=== PATIENT | male | born 1940 | race Caucasian/White ===

== ENCOUNTER 2022-01-28 01:03 | Inpatient (IN) | payer MEDICARE ==
[2022-01-28 01:38] LABS: #Neutrophils 11.7 10x3/uL (1.5-8.4); %Basophils 0.3 % (0.0-2.0); %Eosinophils 0.3 % (0.0-6.0); %Lymphocytes 9.1 % (18.0-47.0); %Monocytes 7.2 % (0.0-10.0); %Neutrophils 82.5 % (40.0-75.0); Hemoglobin 9.7 g/dL (13.5-17.5); Mean Corpuscular Hemoglobin 30.4 pg (27.0-33.0); Mean Corpuscular Volume 92.2 fl (81.2-95.1); Mean Platelet Volume 12.6 fl (7.4-10.4); Platelet Count 156 10x3/uL (150-450); RBC Distribution Width 17.6 % (11.5-14.5); Red Blood Cell (RBC) Count 3.19 10x6/uL (4.32-5.72); White Blood Cell (WBC) Count 14.1 10x3/uL (3.5-10.5)
[2022-01-28 01:56] LABS: ALT (SGPT) 19 U/L (8-55); AST (SGOT) 15 U/L (5-34); Albumin 3.2 g/dL (3.4-4.8); Alkaline Phosphatase 54 U/L (40-110); Anion Gap 17 mmol/L (10-20); BUN (Urea Nitrogen) 90 mg/dL (8.4-25.7); Bilirubin, Total 0.8 mg/dL (0.2-1.2); Calc. Creatinine Clearance 0 mL/min (70-130); Carbon Dioxide 24 mmol/L (23-31); Chloride 104 mmol/L (98-107); Estimated GFR 66; Globulin 1.9 g/dL (2.4-3.5); Glucose 143 mg/dL (83-110); Lipase 20 U/L (8-78); Potassium 5.1 mmol/L (3.5-5.1); Protein, Total 5.1 g/dL (5.8-8.1); Sodium 140 mmol/L (136-145)
[2022-01-28 02:14] LABS: CKMB 2.8 ng/mL (0-6.6)
[2022-01-28 02:40] LABS: SARS-CoV-2 NAA Rapid Test Not Detected (NotDetected)
[2022-01-28] MEDS ORDERED: Cefepime 2 GM VIAL ONE (03:14)
[2022-01-28] MEDS ORDERED: Ondansetron PF 4 MG/2 ML Vial ONE (04:41)
[2022-01-28] MEDS ORDERED: NOREPINEPHRINE 8 MG/250 ML-D5W 250 ML ONE (04:46)
[2022-01-28] MEDS ORDERED: Pantoprazole 40 MG VIAL ONE ×2 (06:11→08:02)
[2022-01-28] MEDS ORDERED: Pantoprazole 40 MG VIAL IVP SCH (06:15)
[2022-01-28] MEDS ORDERED: HUMAN PROTHROMBIN COMPLX IV SCH ×2 (06:30→08:00)
[2022-01-28] MEDS ORDERED: ADMIXTURE FEE IV SCH ×2 (06:30→08:00)
[2022-01-28] MEDS ORDERED: Dexmedetomidine In 0.9 % NaCl 100 ML IVPB SCH (06:45)
[2022-01-28] MEDS ORDERED: Pantoprazole 80 MG in Sodium Chloride 0.9% 100 ML IVP SCH (07:00)
[2022-01-28 07:41] VITALS: BMI 34.0
[2022-01-28] MEDS: Sodium Chloride 0.9% 1,000 ML IV SCH ×2 (07:42→17:33)
[2022-01-28 07:45] LABS: Troponin I 0.045 ng/mL (< 0.028)
[2022-01-28 07:55] LABS: #Eosinphils 0.2 10x3/uL (0.0-0.5); #Monocytes 1.4 10x3/uL (0.0-1.1); #Neutrophils 11.7 10x3/uL (1.5-8.4); %Basophils 0.1 % (0.0-2.0); %Eosinophils 1.6 % (0.0-6.0); %Lymphocytes 12.9 % (18.0-47.0); %Monocytes 8.9 % (0.0-10.0); Mean Corpuscular HGB CONC 33.3 g/dL (32.0-36.0); Mean Corpuscular Hemoglobin 30.4 pg (27.0-33.0); Mean Corpuscular Volume 91.2 fl (81.2-95.1); Mean Platelet Volume 12.1 fl (7.4-10.4); Platelet Count 146 10x3/uL (150-450); Red Blood Cell (RBC) Count 2.96 10x6/uL (4.32-5.72); White Blood Cell (WBC) Count 15.3 10x3/uL (3.5-10.5)
[2022-01-28 09:05] LABS: Lactic Acid 3.1 mmol/L (0.5-2.2)
[2022-01-28] MEDS ORDERED: Succinylcholine 200 MG/10 ml SYRINGE FS ONE (10:00)
[2022-01-28] MEDS ORDERED: Lorazepam 2 MG/ML VIAL ONE (10:42)
[2022-01-28] MEDS ORDERED: Lorazepam 2 MG/ML VIAL SLOW IVP SCH (10:45)
[2022-01-28] MEDS ORDERED: Fentanyl 100 MCG/2 ML VIAL SLOW IVP SCH (10:55)
[2022-01-28] MEDS ORDERED: Fentanyl 100 MCG/2 ML VIAL ONE (10:58)
[2022-01-28] MEDS ORDERED: Sodium Bicarbonate 100 MEQ in Dextrose 5% in Water 1,000 ML IV SCH (11:00)
[2022-01-28 11:04] LABS: Hemoglobin 9.2 g/dL (13.5-17.5); Mean Corpuscular HGB CONC 32.5 g/dL (32.0-36.0); Mean Corpuscular Hemoglobin 29.1 pg (27.0-33.0); Mean Corpuscular Volume 89.6 fl (81.2-95.1); Mean Platelet Volume 12.7 fl (7.4-10.4); Platelet Count 115 10x3/uL (150-450); RBC Distribution Width 20.3 % (11.5-14.5); Red Blood Cell (RBC) Count 3.16 10x6/uL (4.32-5.72); White Blood Cell (WBC) Count 16.5 10x3/uL (3.5-10.5)
[2022-01-28 11:08] LABS: Lactic Acid 7.3 mmol/L (0.5-2.2)
[2022-01-28] MEDS ORDERED: Sodium Bicarbonate 100 MEQ, Admixture Fee 1 EACH in Dextrose 5% in Water 1,000 ML IV SCH ×2 (11:15→16:30)
[2022-01-28 11:35] LABS: Troponin I 0.078 ng/mL (< 0.028)
[2022-01-28 11:38] LABS: MDiff Complete? YES; Manual Diff?? YES
[2022-01-28 11:49] LABS: Anion Gap 20 mmol/L (10-20); BUN (Urea Nitrogen) 101 mg/dL (8.4-25.7); Calc. Creatinine Clearance 69 mL/min (70-130); Calcium 7.8 mg/dL (7.8-10.44); Carbon Dioxide 13 mmol/L (23-31); Chloride 113 mmol/L (98-107); Estimated GFR 66; Glucose 158 mg/dL (83-110); Sodium 141 mmol/L (136-145)
[2022-01-28 11:50] LABS: Band 8 % (5-11); Lymphocytes 5 % (21-51); Metamyelocyte 1 % (0-0); Monocytes 9 % (0-10); Neutrophil 74 % (42-75); Reactive Lymphocytes 3 % (0-10)
[2022-01-28 11:51] LABS: Platelet Morphology Comment Appears Adequate
[2022-01-28 11:52] LABS: Anisocytosis SLIGHT = 6-15 cells (100X) (0-5/hpf); Dohle Bodies SLIGHT; Hypochromia SLIGHT = 6-15 cells (100X) (0-5/hpf); Macrocytosis SLIGHT = 6-15 cells (100X) (0-5/hpf); Microcytosis SLIGHT = 6-15 cells (100X) (0-5/hpf); Polychromasia SLIGHT = 2-3 cells (100X) (0-2/hpf); Toxic Granulation SLIGHT; Vacuoles SLIGHT
[2022-01-28 11:54] LABS: Elliptocytes SLIGHT = 2-5 cells (100X) (0-1/hpf)
[2022-01-28] MEDS ORDERED: Propofol 1,000 MG/100 ML VIAL IV ONE (12:04)
[2022-01-28] MEDS: Propofol 1,000 MG/100 ML VIAL IV PRN ×2 (12:05→21:43)
[2022-01-28] MEDS ORDERED: Iopamidol 300 61% 100 ML VIAL FS ONE (12:26)
[2022-01-28] MEDS ORDERED: Propofol BOLUS 1,000 MG/100 ML VIAL IV PRN (12:30)
[2022-01-28] MEDS ORDERED: Morphine 2 MG/ML VIAL SLOW IVP PRN (12:30)
[2022-01-28] MEDS ORDERED: VANCOMYCIN 1.75 GM/350 ML BAG 1.75 GM in Premix Bag 1 BAG IVPB SCH (12:30)
[2022-01-28] MEDS ORDERED: Lorazepam 2 MG/ML VIAL SLOW IVP PRN (12:30)
[2022-01-28] MEDS ORDERED: Fentanyl BOLUS 250 ML IVPB PRN (12:30)
[2022-01-28] MEDS ORDERED: Rocuronium Bromide 10 MG/ML (10ML VIAL) ONE (13:02)
[2022-01-28] MEDS ORDERED: EPINEPHrine 1 MG/10 ML Abboject SYRINGE ONE (13:14)
[2022-01-28 15:28] LABS: Prothrombin Time 11.3 sec (9.5-12.1)
[2022-01-28 15:32] LABS: ALT (SGPT) 45 U/L (8-55); AST (SGOT) 44 U/L (5-34); Albumin 2.8 g/dL (3.4-4.8); Alkaline Phosphatase 42 U/L (40-110); Anion Gap 15 mmol/L (10-20); BUN (Urea Nitrogen) 96 mg/dL (8.4-25.7); Bilirubin, Total 1.4 mg/dL (0.2-1.2); Calc. Creatinine Clearance 65 mL/min (70-130); Calcium 7.7 mg/dL (7.8-10.44); Carbon Dioxide 19 mmol/L (23-31); Chloride 111 mmol/L (98-107); Estimated GFR 61; Globulin 1.6 g/dL (2.4-3.5); Glucose 168 mg/dL (83-110); Potassium 3.7 mmol/L (3.5-5.1); Protein, Total 4.4 g/dL (5.8-8.1); Sodium 141 mmol/L (136-145)
[2022-01-28 15:44] LABS: Troponin I 0.419 ng/mL (< 0.028)
[2022-01-28] MEDS: fentaNYL Citrate-0.9 % NaCl/PF 100 ML IVPB SCH (16:02)
[2022-01-28 16:07] LABS: ALV-art Gradient 556.925 mmHg (0-20); Actual Bicarbonate (HCO3a) 13.7 mEq/L (22-28); Base Excess (BEa) -14.1 mEq/L (-2.0 to +3.0); CO2 Tension 39.9 mmHg (35.0-45.0); Calcium, Ionized (arterial) 1.09 mmol/L (1.12-1.30); Carboxyhemoglobin (COHb) 0.4 gm% (0.0-3.0); O2 Tension (PaO2), arterial 106.2 mmHg (> 60.0); Potassium - ABG Lab 4.4 mmol/L (3.70-5.30); Puncture Site LBA; pH, Arterial 7.15 (7.35-7.45)
[2022-01-28 16:26] LABS: Magnesium 1.9 mg/dL (1.6-2.6)
[2022-01-28] MEDS ORDERED: Piperacillin/Tazobactam 3.375 GM in Sodium Chloride 0.9% 100 ML IVPB SCH (17:00)
[2022-01-28 17:17] LABS: Lactic Acid 3.7 mmol/L (0.5-2.2)
[2022-01-28 17:25] LABS: Actual Bicarbonate (HCO3a) 21.6 mEq/L (22-28); CO2 Tension 28.5 mmHg (35.0-45.0); Calcium, Ionized (arterial) 1.04 mmol/L (1.12-1.30); Carboxyhemoglobin (COHb) 0.1 gm% (0.0-3.0); Hemoglobin (Hb) 9.5 g/dL (14.0-18.0); O2 Tension (PaO2), arterial 155.6 mmHg (> 60.0); Potassium - ABG Lab 3.7 mmol/L (3.70-5.30); Puncture Site Arterial Line
[2022-01-28 17:30] LABS: ALV-art Gradient 165.275 mmHg (0-20)
[2022-01-28] MEDS ORDERED: methylPREDNISolone Sod Succ/PF 125 MG/2 ML VIAL IVP SCH (18:00)
[2022-01-28 18:43] LABS: Hemoglobin 9.5 g/dL (13.5-17.5)
[2022-01-28 18:59] LABS: Troponin I 0.896 ng/mL (< 0.028)
[2022-01-28] MEDS ORDERED: Magnesium 2 GM/50 ML(in water) 2 GM in Premix Bag 1 BAG IVPB SCH (21:00)
[2022-01-28] MEDS ORDERED: Vancomycin 1 GM in Premix Bag 1 BAG IVPB SCH (21:00)
[2022-01-28] MEDS ORDERED: Cefepime 1 GM in Sodium Chloride 0.9% 100 ML IVPB SCH (21:00)
[2022-01-28] MEDS: Piperacillin/Tazobactam 3.375 GM in Sodium Chloride 0.9% 100 ML IVPB SCH (21:23)
[2022-01-28] MEDS: Pantoprazole 40 MG VIAL IVP SCH (21:24)
[2022-01-28] MEDS: NOREPINEPHRINE 8 MG/250 ML-D5W 250 ML IVPB SCH (21:43)
[2022-01-28 23:48] LABS: Hemoglobin 9.4 g/dL (13.5-17.5)
[2022-01-29 04:12] LABS: Anion Gap 14 mmol/L (10-20); BUN (Urea Nitrogen) 64 mg/dL (8.4-25.7); Calc. Creatinine Clearance 75 mL/min (70-130); Calcium 7.5 mg/dL (7.8-10.44); Carbon Dioxide 20 mmol/L (23-31); Chloride 110 mmol/L (98-107); Estimated GFR 73; Glucose 187 mg/dL (83-110); Potassium 3.1 mmol/L (3.5-5.1); Sodium 141 mmol/L (136-145)
[2022-01-29 04:27] LABS: #Eosinphils 0.1 10x3/uL (0.0-0.5); #Monocytes 1.2 10x3/uL (0.0-1.1); #Neutrophils 12.9 10x3/uL (1.5-8.4); %Basophils 0.3 % (0.0-2.0); %Eosinophils 0.8 % (0.0-6.0); %Lymphocytes 9.3 % (18.0-47.0); %Monocytes 7.6 % (0.0-10.0); %Neutrophils 81.4 % (40.0-75.0); Hemoglobin 9.3 g/dL (13.5-17.5); Mean Corpuscular HGB CONC 34.7 g/dL (32.0-36.0); Mean Corpuscular Hemoglobin 28.9 pg (27.0-33.0); Mean Corpuscular Volume 83.2 fl (81.2-95.1); Mean Platelet Volume 12.5 fl (7.4-10.4); Platelet Count 140 10x3/uL (150-450); RBC Distribution Width 19.7 % (11.5-14.5); Red Blood Cell (RBC) Count 3.22 10x6/uL (4.32-5.72); White Blood Cell (WBC) Count 15.8 10x3/uL (3.5-10.5)
[2022-01-29 04:41] LABS: CKMB 7.9 ng/mL (0-6.6)
[2022-01-29 05:06] LABS: Magnesium 2.4 mg/dL (1.6-2.6)
[2022-01-29 05:14] LABS: Band 2 % (5-11); Lymphocytes 11 % (21-51); Monocytes 6 % (0-10)
[2022-01-29 05:15] LABS: Neutrophil 81 % (42-75)
[2022-01-29 05:16] LABS: Anisocytosis SLIGHT = 6-15 cells (100X) (0-5/hpf); Hypochromia SLIGHT = 6-15 cells (100X) (0-5/hpf); Macrocytosis SLIGHT = 6-15 cells (100X) (0-5/hpf); Microcytosis SLIGHT = 6-15 cells (100X) (0-5/hpf); Platelet Morphology Comment Appears Adequate
[2022-01-29] MEDS: Piperacillin/Tazobactam 3.375 GM in Sodium Chloride 0.9% 100 ML IVPB SCH ×3 (05:55→21:11)
[2022-01-29] MEDS: Potassium Chloride 20 MEQ in Premix Bag 1 BAG IVPB SCH ×2 (05:56→08:04)
[2022-01-29 06:55] LABS: Actual Bicarbonate (HCO3a) 22.2 mEq/L (22-28); Base Excess (BEa) -0.5 mEq/L (-2.0 to +3.0); Calcium, Ionized (arterial) 1.03 mmol/L (1.12-1.30); Carboxyhemoglobin (COHb) 0.3 gm% (0.0-3.0); Hemoglobin (Hb) 10.1 g/dL (14.0-18.0); O2 Tension (PaO2), arterial 124.1 mmHg (> 60.0); Potassium - ABG Lab 3.2 mmol/L (3.70-5.30); Puncture Site Arterial Line; pH, Arterial 7.49 (7.35-7.45)
[2022-01-29] MEDS: NOREPINEPHRINE 8 MG/250 ML-D5W 250 ML IVPB SCH (07:35)
[2022-01-29] MEDS: Propofol 1,000 MG/100 ML VIAL IV PRN ×2 (07:35→19:17)
[2022-01-29] MEDS: Amiodarone In Dextrose 200 ML IVPB SCH ×2 (07:35→19:16)
[2022-01-29] MEDS: Pantoprazole 40 MG VIAL IVP SCH ×2 (08:05→21:12)
[2022-01-29] MEDS: fentaNYL Citrate-0.9 % NaCl/PF 100 ML IVPB SCH (09:53)
[2022-01-29] MEDS: Phenylephrine 40 MG/NS 250 ML 40 MG in Premix Bag 1 BAG IVPB SCH ×3 (10:07→21:33)
[2022-01-29 11:11] LABS: Potassium 3.6 mmol/L (3.5-5.1)
[2022-01-29] MEDS: VANCOMYCIN 1.25 GM/250 ML BAG 1.25 GM in Premix Bag 1 BAG IVPB SCH (11:39)
[2022-01-29 14:03] LABS: Lactic Acid 2.2 mmol/L (0.5-2.2)
[2022-01-30 03:32] LABS: #Eosinphils 0.1 10x3/uL (0.0-0.5); #Monocytes 0.8 10x3/uL (0.0-1.1); #Neutrophils 7.9 10x3/uL (1.5-8.4); %Basophils 0.2 % (0.0-2.0); %Eosinophils 0.5 % (0.0-6.0); %Lymphocytes 11.2 % (18.0-47.0); %Monocytes 8.2 % (0.0-10.0); %Neutrophils 79.4 % (40.0-75.0); Hemoglobin 8.6 g/dL (13.5-17.5); Mean Corpuscular Hemoglobin 28.6 pg (27.0-33.0); Mean Corpuscular Volume 84.1 fl (81.2-95.1); Mean Platelet Volume 11.5 fl (7.4-10.4); Platelet Count 119 10x3/uL (150-450); RBC Distribution Width 20.1 % (11.5-14.5); Red Blood Cell (RBC) Count 3.01 10x6/uL (4.32-5.72)
[2022-01-30 03:45] LABS: ALT (SGPT) 27 U/L (8-55); AST (SGOT) 24 U/L (5-34); Albumin 2.5 g/dL (3.4-4.8); Alkaline Phosphatase 58 U/L (40-110); Anion Gap 12 mmol/L (10-20); BUN (Urea Nitrogen) 36 mg/dL (8.4-25.7); Bilirubin, Direct 0.5 mg/dL (0.1-0.3); Bilirubin, Total 0.8 mg/dL (0.2-1.2); Calc. Creatinine Clearance 99 mL/min (70-130); Calcium 7.8 mg/dL (7.8-10.44); Carbon Dioxide 21 mmol/L (23-31); Chloride 113 mmol/L (98-107); Estimated GFR 89; Glucose 111 mg/dL (83-110); Magnesium 2.2 mg/dL (1.6-2.6); Potassium 3.6 mmol/L (3.5-5.1); Protein, Total 4.4 g/dL (5.8-8.1); Sodium 142 mmol/L (136-145)
[2022-01-30] MEDS: Piperacillin/Tazobactam 3.375 GM in Sodium Chloride 0.9% 100 ML IVPB SCH ×3 (05:07→19:51)
[2022-01-30] MEDS: Propofol 1,000 MG/100 ML VIAL IV PRN ×2 (06:42→19:53)
[2022-01-30 07:26] LABS: Actual Bicarbonate (HCO3a) 23.9 mEq/L (22-28); Base Excess (BEa) 0.8 mEq/L (-2.0 to +3.0); CO2 Tension 32.5 mmHg (35.0-45.0); Calcium, Ionized (arterial) 1.07 mmol/L (1.12-1.30); Carboxyhemoglobin (COHb) 0.3 gm% (0.0-3.0); Hemoglobin (Hb) 8.8 g/dL (14.0-18.0); O2 Tension (PaO2), arterial 123.8 mmHg (> 60.0); Potassium - ABG Lab 3.3 mmol/L (3.70-5.30); Puncture Site Arterial Line; pH, Arterial 7.49 (7.35-7.45)
[2022-01-30 07:31] LABS: ALV-art Gradient 85.125 mmHg (0-20)
[2022-01-30] MEDS: Pantoprazole 40 MG VIAL IVP SCH ×2 (07:57→19:51)
[2022-01-30] MEDS: Potassium Chloride 40 MEQ in Premix Bag 1 BAG IVPB SCH ×2 (09:06→19:53)
[2022-01-30] MEDS: fentaNYL Citrate-0.9 % NaCl/PF 100 ML IVPB SCH (10:34)
[2022-01-30] MEDS: Amiodarone In Dextrose 200 ML IVPB SCH ×2 (10:53→21:27)
[2022-01-30 11:55] LABS: Vancomycin, Trough 8.6 ug/mL
[2022-01-30] MEDS: VANCOMYCIN 1.25 GM/250 ML BAG 1.25 GM in Premix Bag 1 BAG IVPB SCH (12:09)
[2022-01-30] MEDS: Phenylephrine 40 MG/NS 250 ML 40 MG in Premix Bag 1 BAG IVPB SCH (19:53)
[2022-01-30 23:37] LABS: Anion Gap 10 mmol/L (10-20); BUN (Urea Nitrogen) 26 mg/dL (8.4-25.7); Calc. Creatinine Clearance 105 mL/min (70-130); Calcium 7.8 mg/dL (7.8-10.44); Carbon Dioxide 22 mmol/L (23-31); Chloride 115 mmol/L (98-107); Estimated GFR 91; Glucose 104 mg/dL (83-110); Potassium 4.1 mmol/L (3.5-5.1); Sodium 143 mmol/L (136-145)
[2022-01-31] MEDS: Propofol 1,000 MG/100 ML VIAL IV PRN (04:03)
[2022-01-31] MEDS: fentaNYL Citrate-0.9 % NaCl/PF 100 ML IVPB SCH (04:03)
[2022-01-31 04:12] LABS: #Eosinphils 0.1 10x3/uL (0.0-0.5); #Monocytes 0.4 10x3/uL (0.0-1.1); #Neutrophils 3.3 10x3/uL (1.5-8.4); %Basophils 0.2 % (0.0-2.0); %Eosinophils 2.2 % (0.0-6.0); %Lymphocytes 14.4 % (18.0-47.0); %Monocytes 9.2 % (0.0-10.0); %Neutrophils 73.8 % (40.0-75.0); Hemoglobin 7.6 g/dL (13.5-17.5); Mean Corpuscular HGB CONC 32.5 g/dL (32.0-36.0); Mean Corpuscular Hemoglobin 28.3 pg (27.0-33.0); Platelet Count 98 10x3/uL (150-450); RBC Distribution Width 20.4 % (11.5-14.5); Red Blood Cell (RBC) Count 2.69 10x6/uL (4.32-5.72); White Blood Cell (WBC) Count 4.5 10x3/uL (3.5-10.5)
[2022-01-31 04:13] LABS: Mean Platelet Volume 11.6 fl (7.4-10.4)
[2022-01-31 04:23] LABS: Anion Gap 10 mmol/L (10-20); BUN (Urea Nitrogen) 25 mg/dL (8.4-25.7); Calc. Creatinine Clearance 110 mL/min (70-130); Calcium 7.8 mg/dL (7.8-10.44); Carbon Dioxide 22 mmol/L (23-31); Chloride 115 mmol/L (98-107); Estimated GFR 92; Glucose 102 mg/dL (83-110); Magnesium 2.2 mg/dL (1.6-2.6); Potassium 3.7 mmol/L (3.5-5.1); Sodium 143 mmol/L (136-145)
[2022-01-31] MEDS: Piperacillin/Tazobactam 3.375 GM in Sodium Chloride 0.9% 100 ML IVPB SCH ×3 (05:19→21:31)
[2022-01-31] MEDS: Vancomycin 1.5 GRAM/300 ML BAG 1.5 GM in Premix Bag 1 BAG IVPB SCH (06:59)
[2022-01-31] MEDS: Pantoprazole 40 MG VIAL IVP SCH ×2 (09:55→21:33)
[2022-01-31] MEDS: Amiodarone In Dextrose 200 ML IVPB SCH ×2 (09:56→22:25)
[2022-01-31 10:52] LABS: Actual Bicarbonate (HCO3a) 19.8 mEq/L (22-28); Base Excess (BEa) -3.8 mEq/L (-2.0 to +3.0); CO2 Tension 30.8 mmHg (35.0-45.0); Calcium, Ionized (arterial) 1.14 mmol/L (1.12-1.30); Carboxyhemoglobin (COHb) 0.2 gm% (0.0-3.0); Hemoglobin (Hb) 9.6 g/dL (14.0-18.0); O2 Tension (PaO2), arterial 110.4 mmHg (> 60.0); Potassium - ABG Lab 3.7 mmol/L (3.70-5.30); Puncture Site Arterial Line; pH, Arterial 7.43 (7.35-7.45)
[2022-01-31 12:56] LABS: Hemoglobin 9.2 g/dL (13.5-17.5)
[2022-01-31] MEDS ORDERED: Acetaminophen 650 MG Suppository PR PRN (17:36)
[2022-01-31] MEDS ORDERED: Bisacodyl 10 MG SUPP PR SCH (20:00)
[2022-02-01] MEDS: Vancomycin 1.5 GRAM/300 ML BAG 1.5 GM in Premix Bag 1 BAG IVPB SCH ×2 (01:20→19:18)
[2022-02-01 04:38] LABS: #Monocytes 0.6 10x3/uL (0.0-1.1); #Neutrophils 3.7 10x3/uL (1.5-8.4); %Eosinophils 0.4 % (0.0-6.0); %Lymphocytes 12.4 % (18.0-47.0); %Monocytes 11.6 % (0.0-10.0); Hemoglobin 8.8 g/dL (13.5-17.5); Mean Corpuscular HGB CONC 32.4 g/dL (32.0-36.0); Mean Corpuscular Hemoglobin 28.6 pg (27.0-33.0); Mean Corpuscular Volume 88.3 fl (81.2-95.1); Mean Platelet Volume 11.6 fl (7.4-10.4); Platelet Count 102 10x3/uL (150-450); Red Blood Cell (RBC) Count 3.08 10x6/uL (4.32-5.72); White Blood Cell (WBC) Count 4.9 10x3/uL (3.5-10.5)
[2022-02-01 04:56] LABS: Actual Bicarbonate (HCO3a) 21.8 mEq/L (22-28); Base Excess (BEa) -1.9 mEq/L (-2.0 to +3.0); CO2 Tension 32.8 mmHg (35.0-45.0); Calcium, Ionized (arterial) 1.14 mmol/L (1.12-1.30); Carboxyhemoglobin (COHb) 0.3 gm% (0.0-3.0); O2 Tension (PaO2), arterial 154.8 mmHg (> 60.0); Potassium - ABG Lab 3.4 mmol/L (3.70-5.30); Puncture Site RRA; pH, Arterial 7.44 (7.35-7.45)
[2022-02-01 05:00] LABS: ALT (SGPT) 25 U/L (8-55); AST (SGOT) 28 U/L (5-34); Albumin 2.6 g/dL (3.4-4.8); Alkaline Phosphatase 54 U/L (40-110); Anion Gap 15 mmol/L (10-20); BUN (Urea Nitrogen) 22 mg/dL (8.4-25.7); Bilirubin, Total 0.9 mg/dL (0.2-1.2); Calc. Creatinine Clearance 104 mL/min (70-130); Carbon Dioxide 20 mmol/L (23-31); Chloride 113 mmol/L (98-107); Estimated GFR 90; Globulin 2.3 g/dL (2.4-3.5); Glucose 103 mg/dL (83-110); Magnesium 2.1 mg/dL (1.6-2.6); Potassium 3.6 mmol/L (3.5-5.1); Protein, Total 4.9 g/dL (5.8-8.1); Sodium 144 mmol/L (136-145)
[2022-02-01] MEDS: Piperacillin/Tazobactam 3.375 GM in Sodium Chloride 0.9% 100 ML IVPB SCH ×3 (05:57→20:47)
[2022-02-01] MEDS ORDERED: Potassium Chloride 40 MEQ in Premix Bag 1 BAG IVPB SCH (06:45)
[2022-02-01] MEDS: Potassium Chloride 20 MEQ in Premix Bag 1 BAG IVPB SCH ×2 (07:47→09:33)
[2022-02-01] MEDS: Pantoprazole 40 MG VIAL IVP SCH ×2 (07:47→20:47)
[2022-02-01] MEDS: Amiodarone In Dextrose 200 ML IVPB SCH (10:30)
[2022-02-01] MEDS: Amiodarone 200 MG TAB PO SCH (20:47)
[2022-02-01] MEDS: Senokot S 8.6-50 MG TAB PO SCH (20:48)
[2022-02-02 05:51] LABS: ALT (SGPT) 31 U/L (8-55); AST (SGOT) 30 U/L (5-34); Albumin 2.6 g/dL (3.4-4.8); Alkaline Phosphatase 80 U/L (40-110); Anion Gap 12 mmol/L (10-20); BUN (Urea Nitrogen) 20 mg/dL (8.4-25.7); Calc. Creatinine Clearance 104 mL/min (70-130); Calcium 8.2 mg/dL (7.8-10.44); Carbon Dioxide 23 mmol/L (23-31); Chloride 114 mmol/L (98-107); Estimated GFR 90; Globulin 2.1 g/dL (2.4-3.5); Glucose 113 mg/dL (83-110); Potassium 3.6 mmol/L (3.5-5.1); Protein, Total 4.7 g/dL (5.8-8.1); Sodium 145 mmol/L (136-145)
[2022-02-02 06:48] LABS: #Eosinphils 0.2 10x3/uL (0.0-0.5); #Monocytes 0.6 10x3/uL (0.0-1.1); #Neutrophils 3.8 10x3/uL (1.5-8.4); %Basophils 0.4 % (0.0-2.0); %Eosinophils 2.9 % (0.0-6.0); %Lymphocytes 11.5 % (18.0-47.0); %Monocytes 11.2 % (0.0-10.0); %Neutrophils 73.4 % (40.0-75.0); Hemoglobin 8.7 g/dL (13.5-17.5); Mean Platelet Volume 11.3 fl (7.4-10.4); White Blood Cell (WBC) Count 5.1 10x3/uL (3.5-10.5)
[2022-02-02] MEDS: Piperacillin/Tazobactam 3.375 GM in Sodium Chloride 0.9% 100 ML IVPB SCH ×3 (07:20→23:25)
[2022-02-02] MEDS: Pantoprazole 40 MG VIAL IVP SCH ×2 (07:46→23:25)
[2022-02-02] MEDS: Amiodarone 200 MG TAB PO SCH (07:46)
[2022-02-02] MEDS: Senokot S 8.6-50 MG TAB PO SCH (07:46)
[2022-02-02] MEDS ORDERED: Polyethylene Glycol 3350 17 GM Packet PO SCH (09:00)
[2022-02-02 10:22] LABS: Platelet Count 139 10x3/uL (150-450)
[2022-02-02] MEDS: Vancomycin 1.5 GRAM/300 ML BAG 1.5 GM in Premix Bag 1 BAG IVPB SCH (11:08)
[2022-02-02] MEDS ORDERED: Milk Of Magnesia 30 ML UDCUP PO SCH (15:00)
[2022-02-03] MEDS: Amiodarone 200 MG TAB PO SCH ×3 (04:55→21:03)
[2022-02-03] MEDS: Polyethylene Glycol 3350 17 GM Packet PO SCH ×3 (04:56→21:06)
[2022-02-03] MEDS: Senokot S 8.6-50 MG TAB PO SCH ×3 (04:56→21:04)
[2022-02-03] MEDS: Vancomycin 1.5 GRAM/300 ML BAG 1.5 GM in Premix Bag 1 BAG IVPB SCH (05:01)
[2022-02-03 05:07] LABS: #Eosinphils 0.2 10x3/uL (0.0-0.5); #Monocytes 0.6 10x3/uL (0.0-1.1); #Neutrophils 4.2 10x3/uL (1.5-8.4); %Basophils 0.3 % (0.0-2.0); %Eosinophils 3.4 % (0.0-6.0); %Lymphocytes 10.9 % (18.0-47.0); %Neutrophils 72.8 % (40.0-75.0); Hemoglobin 8.7 g/dL (13.5-17.5); Mean Corpuscular HGB CONC 32.5 g/dL (32.0-36.0); Mean Corpuscular Hemoglobin 28.7 pg (27.0-33.0); Mean Corpuscular Volume 88.4 fl (81.2-95.1); Mean Platelet Volume 10.6 fl (7.4-10.4); Platelet Count 175 10x3/uL (150-450); RBC Distribution Width 19.8 % (11.5-14.5); Red Blood Cell (RBC) Count 3.03 10x6/uL (4.32-5.72); White Blood Cell (WBC) Count 5.8 10x3/uL (3.5-10.5)
[2022-02-03 05:22] LABS: ALT (SGPT) 41 U/L (8-55); AST (SGOT) 34 U/L (5-34); Albumin 2.5 g/dL (3.4-4.8); Alkaline Phosphatase 81 U/L (40-110); Anion Gap 10 mmol/L (10-20); BUN (Urea Nitrogen) 20 mg/dL (8.4-25.7); Bilirubin, Total 1.1 mg/dL (0.2-1.2); Calc. Creatinine Clearance 113 mL/min (70-130); Carbon Dioxide 25 mmol/L (23-31); Chloride 113 mmol/L (98-107); Estimated GFR 93; Globulin 2.2 g/dL (2.4-3.5); Glucose 106 mg/dL (83-110); Magnesium 2.1 mg/dL (1.6-2.6); Potassium 3.5 mmol/L (3.5-5.1); Protein, Total 4.7 g/dL (5.8-8.1); Sodium 144 mmol/L (136-145)
[2022-02-03] MEDS: Piperacillin/Tazobactam 3.375 GM in Sodium Chloride 0.9% 100 ML IVPB SCH ×3 (06:49→21:05)
[2022-02-03] MEDS ORDERED: Potassium Chloride 20 MEQ TAB PO SCH (08:00)
[2022-02-03] MEDS: Pantoprazole 40 MG VIAL IVP SCH ×2 (10:11→21:05)
[2022-02-03 10:38] LABS: Actual Bicarbonate (HCO3a) 20.8 mEq/L (22-28); Base Excess (BEa) -3.1 mEq/L (-2.0 to +3.0); CO2 Tension 33.8 mmHg (35.0-45.0); Calcium, Ionized (arterial) 1.17 mmol/L (1.12-1.30); Carboxyhemoglobin (COHb) 0.9 gm% (0.0-3.0); Hemoglobin (Hb) 12.9 g/dL (14.0-18.0); O2 Tension (PaO2), arterial 97.7 mmHg (> 60.0); Potassium - ABG Lab 3.5 mmol/L (3.70-5.30); Puncture Site LRA; pH, Arterial 7.41 (7.35-7.45)
[2022-02-03] MEDS ORDERED: Furosemide 40 MG/4 ML VIAL SLOW IVP SCH (12:00)
[2022-02-04] MEDS: Vancomycin 1.5 GRAM/300 ML BAG 1.5 GM in Premix Bag 1 BAG IVPB SCH (00:02)
[2022-02-04] MEDS ORDERED: Haloperidol Lactate 5 MG/ML VIAL IM SCH (03:15)
[2022-02-04 05:33] LABS: #Eosinphils 0.2 10x3/uL (0.0-0.5); #Monocytes 0.5 10x3/uL (0.0-1.1); #Neutrophils 4.4 10x3/uL (1.5-8.4); %Basophils 0.5 % (0.0-2.0); %Eosinophils 3.7 % (0.0-6.0); %Lymphocytes 12.7 % (18.0-47.0); %Monocytes 8.4 % (0.0-10.0); %Neutrophils 73.5 % (40.0-75.0); Mean Corpuscular Hemoglobin 28.9 pg (27.0-33.0); Mean Corpuscular Volume 87.8 fl (81.2-95.1); Mean Platelet Volume 10.4 fl (7.4-10.4); Platelet Count 220 10x3/uL (150-450); RBC Distribution Width 19.8 % (11.5-14.5); Red Blood Cell (RBC) Count 3.11 10x6/uL (4.32-5.72)
[2022-02-04] MEDS: Piperacillin/Tazobactam 3.375 GM in Sodium Chloride 0.9% 100 ML IVPB SCH ×3 (05:41→20:34)
[2022-02-04] MEDS: Furosemide 40 MG/4 ML VIAL SLOW IVP SCH ×2 (05:42→12:52)
[2022-02-04 05:47] LABS: ALT (SGPT) 36 U/L (8-55); AST (SGOT) 27 U/L (5-34); Albumin 2.6 g/dL (3.4-4.8); Alkaline Phosphatase 77 U/L (40-110); Anion Gap 12 mmol/L (10-20); BUN (Urea Nitrogen) 19 mg/dL (8.4-25.7); Calc. Creatinine Clearance 101 mL/min (70-130); Calcium 8.1 mg/dL (7.8-10.44); Carbon Dioxide 27 mmol/L (23-31); Chloride 108 mmol/L (98-107); Estimated GFR 90; Globulin 2.3 g/dL (2.4-3.5); Glucose 106 mg/dL (83-110); Magnesium 1.8 mg/dL (1.6-2.6); Potassium 3.4 mmol/L (3.5-5.1); Protein, Total 4.9 g/dL (5.8-8.1); Sodium 144 mmol/L (136-145)
[2022-02-04] MEDS ORDERED: Potassium Chloride 20 MEQ TAB PO SCH (09:00)
[2022-02-04] MEDS: Amiodarone 200 MG TAB PO SCH ×2 (09:11→20:33)
[2022-02-04] MEDS: Enoxaparin Sodium 100 MG/ML SYRINGE ONE ×2 (09:12→09:13)
[2022-02-04] MEDS: Pantoprazole 40 MG VIAL IVP SCH ×2 (09:12→20:34)
[2022-02-04] MEDS: Polyethylene Glycol 3350 17 GM Packet PO SCH ×2 (09:12→20:34)
[2022-02-04] MEDS: Senokot S 8.6-50 MG TAB PO SCH ×2 (09:12→20:35)
[2022-02-04] MEDS: Enoxaparin Sodium 100 MG/ML SYRINGE SC SCH ×2 (09:13→20:33)
[2022-02-04 17:18] LABS: Vancomycin, Trough 21.5 ug/mL
[2022-02-04] MEDS ORDERED: VANCOMYCIN 1.25 GM/250 ML BAG 1.25 GM in Premix Bag 1 BAG IVPB SCH (18:00)
[2022-02-04] MEDS ORDERED: Haloperidol Lactate 5 MG/ML VIAL SLOW IVP SCH (22:45)
[2022-02-05 00:52] LABS: #Eosinphils 0.2 10x3/uL (0.0-0.5); #Monocytes 0.5 10x3/uL (0.0-1.1); #Neutrophils 4.2 10x3/uL (1.5-8.4); %Basophils 0.2 % (0.0-2.0); %Lymphocytes 12.7 % (18.0-47.0); %Monocytes 9.5 % (0.0-10.0); %Neutrophils 73.5 % (40.0-75.0); Hemoglobin 8.7 g/dL (13.5-17.5); Mean Corpuscular HGB CONC 31.8 g/dL (32.0-36.0); Mean Corpuscular Hemoglobin 28.5 pg (27.0-33.0); Mean Corpuscular Volume 89.8 fl (81.2-95.1); Mean Platelet Volume 10.4 fl (7.4-10.4); Platelet Count 282 10x3/uL (150-450); RBC Distribution Width 19.4 % (11.5-14.5); Red Blood Cell (RBC) Count 3.05 10x6/uL (4.32-5.72); White Blood Cell (WBC) Count 5.7 10x3/uL (3.5-10.5)
[2022-02-05 05:01] LABS: #Eosinphils 0.2 10x3/uL (0.0-0.5); #Monocytes 0.5 10x3/uL (0.0-1.1); #Neutrophils 3.7 10x3/uL (1.5-8.4); %Basophils 0.6 % (0.0-2.0); %Eosinophils 3.7 % (0.0-6.0); %Lymphocytes 14.8 % (18.0-47.0); %Monocytes 9.2 % (0.0-10.0); %Neutrophils 70.7 % (40.0-75.0); Mean Corpuscular HGB CONC 32.3 g/dL (32.0-36.0); Mean Corpuscular Hemoglobin 28.4 pg (27.0-33.0); Mean Platelet Volume 10.5 fl (7.4-10.4); Platelet Count 270 10x3/uL (150-450); RBC Distribution Width 19.3 % (11.5-14.5); Red Blood Cell (RBC) Count 3.17 10x6/uL (4.32-5.72); White Blood Cell (WBC) Count 5.2 10x3/uL (3.5-10.5)
[2022-02-05] MEDS: Piperacillin/Tazobactam 3.375 GM in Sodium Chloride 0.9% 100 ML IVPB SCH ×3 (05:02→20:39)
[2022-02-05] MEDS: Furosemide 40 MG/4 ML VIAL SLOW IVP SCH ×2 (05:02→13:47)
[2022-02-05 05:04] LABS: ALT (SGPT) 33 U/L (8-55); AST (SGOT) 23 U/L (5-34); Albumin 2.6 g/dL (3.4-4.8); Alkaline Phosphatase 82 U/L (40-110); Anion Gap 11 mmol/L (10-20); BUN (Urea Nitrogen) 21 mg/dL (8.4-25.7); Bilirubin, Total 0.9 mg/dL (0.2-1.2); Calc. Creatinine Clearance 99 mL/min (70-130); Calcium 8.4 mg/dL (7.8-10.44); Carbon Dioxide 34 mmol/L (23-31); Chloride 102 mmol/L (98-107); Estimated GFR 89; Globulin 2.5 g/dL (2.4-3.5); Glucose 106 mg/dL (83-110); Magnesium 1.8 mg/dL (1.6-2.6); Potassium 3.1 mmol/L (3.5-5.1); Protein, Total 5.1 g/dL (5.8-8.1); Sodium 144 mmol/L (136-145)
[2022-02-05] MEDS ORDERED: Potassium Chloride 40 MEQ in Premix Bag 1 BAG IVPB SCH (06:45)
[2022-02-05] MEDS: Amiodarone 200 MG TAB PO SCH ×2 (07:42→20:45)
[2022-02-05] MEDS: Polyethylene Glycol 3350 17 GM Packet PO SCH ×2 (07:42→20:45)
[2022-02-05] MEDS: Pantoprazole 40 MG VIAL IVP SCH ×2 (07:42→20:44)
[2022-02-05] MEDS: Senokot S 8.6-50 MG TAB PO SCH ×2 (07:43→22:53)
[2022-02-05] MEDS: Vancomycin HCl 1 GM in Sodium Chloride 0.9% 250 ML 250 ML IVPB SCH (12:02)
[2022-02-05 13:09] LABS: #Eosinphils 0.2 10x3/uL (0.0-0.5); #Monocytes 0.5 10x3/uL (0.0-1.1); #Neutrophils 4.5 10x3/uL (1.5-8.4); %Basophils 0.5 % (0.0-2.0); %Lymphocytes 14.6 % (18.0-47.0); %Monocytes 7.4 % (0.0-10.0); %Neutrophils 73.7 % (40.0-75.0); Hemoglobin 9.9 g/dL (13.5-17.5); Mean Corpuscular HGB CONC 31.6 g/dL (32.0-36.0); Mean Corpuscular Hemoglobin 28.4 pg (27.0-33.0); Mean Corpuscular Volume 89.7 fl (81.2-95.1); Mean Platelet Volume 10.1 fl (7.4-10.4); Platelet Count 300 10x3/uL (150-450); RBC Distribution Width 19.4 % (11.5-14.5); Red Blood Cell (RBC) Count 3.49 10x6/uL (4.32-5.72); White Blood Cell (WBC) Count 6.1 10x3/uL (3.5-10.5)
[2022-02-06] MEDS: Piperacillin/Tazobactam 3.375 GM in Sodium Chloride 0.9% 100 ML IVPB SCH (05:06)
[2022-02-06 05:20] LABS: Vancomycin, Trough 19.2 ug/mL
[2022-02-06 05:32] LABS: ALT (SGPT) 32 U/L (8-55); AST (SGOT) 28 U/L (5-34); Albumin 2.8 g/dL (3.4-4.8); Alkaline Phosphatase 85 U/L (40-110); Anion Gap 18 mmol/L (10-20); BUN (Urea Nitrogen) 23 mg/dL (8.4-25.7); Bilirubin, Total 0.9 mg/dL (0.2-1.2); Calc. Creatinine Clearance 97 mL/min (70-130); Calcium 8.9 mg/dL (7.8-10.44); Carbon Dioxide 26 mmol/L (23-31); Chloride 101 mmol/L (98-107); Estimated GFR 89; Globulin 2.7 g/dL (2.4-3.5); Glucose 106 mg/dL (83-110); Potassium 3.4 mmol/L (3.5-5.1); Protein, Total 5.5 g/dL (5.8-8.1); Sodium 142 mmol/L (136-145)
[2022-02-06] MEDS: Vancomycin HCl 1 GM in Sodium Chloride 0.9% 250 ML 250 ML IVPB SCH (06:19)
[2022-02-06] MEDS: Furosemide 40 MG/4 ML VIAL SLOW IVP SCH ×2 (06:19→15:13)
[2022-02-06 07:03] LABS: #Eosinphils 0.1 10x3/uL (0.0-0.5); #Monocytes 0.6 10x3/uL (0.0-1.1); #Neutrophils 4.6 10x3/uL (1.5-8.4); %Basophils 0.6 % (0.0-2.0); %Eosinophils 2.2 % (0.0-6.0); %Lymphocytes 14.9 % (18.0-47.0); %Monocytes 9.3 % (0.0-10.0); %Neutrophils 72.4 % (40.0-75.0); Hemoglobin 9.9 g/dL (13.5-17.5); Mean Corpuscular HGB CONC 32.6 g/dL (32.0-36.0); Mean Corpuscular Hemoglobin 28.3 pg (27.0-33.0); Mean Corpuscular Volume 86.9 fl (81.2-95.1); Mean Platelet Volume 9.8 fl (7.4-10.4); Platelet Count 308 10x3/uL (150-450); RBC Distribution Width 19.4 % (11.5-14.5); White Blood Cell (WBC) Count 6.4 10x3/uL (3.5-10.5)
[2022-02-06] MEDS: Lidocaine 5% Patch TD SCH (09:30)
[2022-02-06] MEDS: Potassium Chloride 20 MEQ in Premix Bag 1 BAG IVPB SCH ×2 (09:31→12:21)
[2022-02-06] MEDS: Pantoprazole 40 MG VIAL IVP SCH ×2 (09:31→20:31)
[2022-02-06] MEDS: Amiodarone 200 MG TAB PO SCH ×2 (09:32→20:31)
[2022-02-06] MEDS: Polyethylene Glycol 3350 17 GM Packet PO SCH ×2 (09:32→21:22)
[2022-02-06] MEDS: Senokot S 8.6-50 MG TAB PO SCH ×2 (09:32→21:22)
[2022-02-06 15:39] LABS: Base Excess (BEa) 9.4 mEq/L (-2.0 to +3.0); CO2 Tension 40.9 mmHg (35.0-45.0); Carboxyhemoglobin (COHb) 0.8 gm% (0.0-3.0); Hemoglobin (Hb) 10.8 g/dL (14.0-18.0); O2 Tension (PaO2), arterial 65.1 mmHg (> 60.0); Potassium - ABG Lab 3.5 mmol/L (3.70-5.30); Puncture Site RRA; pH, Arterial 7.53 (7.35-7.45)
[2022-02-06 15:42] LABS: ALV-art Gradient 33.505 mmHg (0-20)
[2022-02-06] MEDS ORDERED: Potassium Chloride 20 MEQ in Premix Bag 1 BAG IVPB SCH (16:00)
[2022-02-06] MEDS ORDERED: Bumetanide 1 MG/4 ML VIAL IVP SCH (16:00)
[2022-02-06] MEDS: Transdermal Patch Removal TOP SCH (21:24)
[2022-02-06] MEDS ORDERED: Haloperidol Lactate 5 MG/ML VIAL IM SCH (23:15)
[2022-02-07 05:30] LABS: #Eosinphils 0.1 10x3/uL (0.0-0.5); #Monocytes 0.7 10x3/uL (0.0-1.1); #Neutrophils 4.7 10x3/uL (1.5-8.4); %Basophils 0.6 % (0.0-2.0); %Eosinophils 2.1 % (0.0-6.0); %Lymphocytes 17.2 % (18.0-47.0); %Monocytes 9.7 % (0.0-10.0); %Neutrophils 69.8 % (40.0-75.0); Hemoglobin 9.9 g/dL (13.5-17.5); Mean Corpuscular HGB CONC 32.2 g/dL (32.0-36.0); Mean Corpuscular Hemoglobin 28.2 pg (27.0-33.0); Mean Corpuscular Volume 87.5 fl (81.2-95.1); Mean Platelet Volume 10.3 fl (7.4-10.4); Platelet Count 359 10x3/uL (150-450); RBC Distribution Width 19.6 % (11.5-14.5); Red Blood Cell (RBC) Count 3.51 10x6/uL (4.32-5.72); White Blood Cell (WBC) Count 6.7 10x3/uL (3.5-10.5)
[2022-02-07 05:44] LABS: ALT (SGPT) 32 U/L (8-55); AST (SGOT) 24 U/L (5-34); Albumin 3.1 g/dL (3.4-4.8); Alkaline Phosphatase 102 U/L (40-110); Anion Gap 13 mmol/L (10-20); BUN (Urea Nitrogen) 25 mg/dL (8.4-25.7); Bilirubin, Total 0.9 mg/dL (0.2-1.2); Calc. Creatinine Clearance 90 mL/min (70-130); Calcium 9.2 mg/dL (7.8-10.44); Carbon Dioxide 35 mmol/L (23-31); Chloride 97 mmol/L (98-107); Estimated GFR 86; Globulin 2.8 g/dL (2.4-3.5); Glucose 116 mg/dL (83-110); Potassium 3.5 mmol/L (3.5-5.1); Protein, Total 5.9 g/dL (5.8-8.1); Sodium 141 mmol/L (136-145)
[2022-02-07] MEDS ORDERED: Bumetanide 1 MG/4 ML VIAL IVP SCH (06:00)
[2022-02-07] MEDS: Polyethylene Glycol 3350 17 GM Packet PO SCH ×2 (09:46→20:05)
[2022-02-07] MEDS: Amiodarone 200 MG TAB PO SCH ×2 (09:46→20:04)
[2022-02-07] MEDS: Pantoprazole 40 MG VIAL IVP SCH ×2 (09:46→20:05)
[2022-02-07] MEDS: Lidocaine 5% Patch TD SCH (09:46)
[2022-02-07] MEDS: Senokot S 8.6-50 MG TAB PO SCH ×2 (09:47→20:05)
[2022-02-07] MEDS: Enoxaparin Sodium 100 MG/ML SYRINGE SC SCH (20:05)
[2022-02-07] MEDS ORDERED: Apixaban 5 MG TAB PO SCH (21:00)
[2022-02-07] MEDS: Transdermal Patch Removal TOP SCH (22:18)
[2022-02-08] MEDS: Lidocaine 5% Patch TD SCH (06:03)
[2022-02-08] MEDS: Pantoprazole 40 MG VIAL IVP SCH ×2 (09:03→21:02)
[2022-02-08] MEDS: acetaZOLAMIDE Sodium 250 MG in Sodium Chloride 0.9% 50 ML IVPB SCH (09:03)
[2022-02-08] MEDS: Enoxaparin Sodium 100 MG/ML SYRINGE SC SCH ×2 (09:04→21:01)
[2022-02-08] MEDS: Amiodarone 200 MG TAB PO SCH ×2 (09:04→21:17)
[2022-02-08] MEDS: Senokot S 8.6-50 MG TAB PO SCH ×2 (10:11→21:02)
[2022-02-08] MEDS: Polyethylene Glycol 3350 17 GM Packet PO SCH ×2 (10:11→21:02)
[2022-02-08] MEDS: Transdermal Patch Removal TOP SCH (21:03)
[2022-02-08] MEDS ORDERED: traMADol HCl 50 MG TAB PO SCH (23:59)
[2022-02-09] MEDS: acetaZOLAMIDE Sodium 250 MG in Sodium Chloride 0.9% 50 ML IVPB SCH (09:05)
[2022-02-09] MEDS: Senokot S 8.6-50 MG TAB PO SCH ×2 (09:05→20:42)
[2022-02-09] MEDS: Polyethylene Glycol 3350 17 GM Packet PO SCH ×2 (09:05→20:42)
[2022-02-09] MEDS: Enoxaparin Sodium 100 MG/ML SYRINGE SC SCH (09:05)
[2022-02-09] MEDS: Pantoprazole 40 MG VIAL IVP SCH ×2 (09:05→20:42)
[2022-02-09] MEDS: Amiodarone 200 MG TAB PO SCH (09:06)
[2022-02-09] MEDS: Lidocaine 5% Patch TD SCH (09:06)
[2022-02-09 10:02] LABS: Anion Gap 12 mmol/L (10-20); BUN (Urea Nitrogen) 22 mg/dL (8.4-25.7); Calc. Creatinine Clearance 92 mL/min (70-130); Calcium 9.2 mg/dL (7.8-10.44); Carbon Dioxide 29 mmol/L (23-31); Chloride 101 mmol/L (98-107); Estimated GFR 87; Glucose 126 mg/dL (83-110); Potassium 3.2 mmol/L (3.5-5.1); Sodium 139 mmol/L (136-145)
[2022-02-09] MEDS: Apixaban 5 MG TAB PO SCH (20:42)
[2022-02-09] MEDS: Transdermal Patch Removal TOP SCH (20:43)
[2022-02-10 06:00] LABS: Anion Gap 14 mmol/L (10-20); BUN (Urea Nitrogen) 24 mg/dL (8.4-25.7); Calc. Creatinine Clearance 87 mL/min (70-130); Calcium 9.1 mg/dL (7.8-10.44); Carbon Dioxide 28 mmol/L (23-31); Chloride 103 mmol/L (98-107); Estimated GFR 86; Glucose 111 mg/dL (83-110); Potassium 3.3 mmol/L (3.5-5.1); Sodium 142 mmol/L (136-145)
[2022-02-10] MEDS ORDERED: Zolpidem Tartrate 5 MG TAB PO PRN (10:13)
[2022-02-10] MEDS ORDERED: Melatonin 3 MG TAB PO PRN (10:13)
[2022-02-10] MEDS: acetaZOLAMIDE Sodium 250 MG in Sodium Chloride 0.9% 50 ML IVPB SCH (10:22)
[2022-02-10] MEDS: Polyethylene Glycol 3350 17 GM Packet PO SCH ×2 (10:23→21:41)
[2022-02-10] MEDS: Senokot S 8.6-50 MG TAB PO SCH ×2 (10:23→21:44)
[2022-02-10] MEDS: Lidocaine 5% Patch TD SCH (10:23)
[2022-02-10] MEDS: Pantoprazole 40 MG VIAL IVP SCH ×2 (10:23→21:41)
[2022-02-10] MEDS: Apixaban 5 MG TAB PO SCH ×2 (10:23→21:41)
[2022-02-10] MEDS ORDERED: Potassium Chloride 20 MEQ TAB PO SCH (11:00)
[2022-02-10] MEDS: Transdermal Patch Removal TOP SCH (22:14)
[2022-02-11 09:01] LABS: Anion Gap 12 mmol/L (10-20); BUN (Urea Nitrogen) 24 mg/dL (8.4-25.7); Calc. Creatinine Clearance 89 mL/min (70-130); Calcium 9.1 mg/dL (7.8-10.44); Carbon Dioxide 25 mmol/L (23-31); Chloride 105 mmol/L (98-107); Estimated GFR 86; Glucose 105 mg/dL (83-110); Potassium 3.5 mmol/L (3.5-5.1); Sodium 138 mmol/L (136-145)
[2022-02-11] MEDS: Polyethylene Glycol 3350 17 GM Packet PO SCH (09:52)
[2022-02-11] MEDS: Lidocaine 5% Patch TD SCH (09:52)
[2022-02-11] MEDS: acetaZOLAMIDE Sodium 250 MG in Sodium Chloride 0.9% 50 ML IVPB SCH (09:52)
[2022-02-11] MEDS: Pantoprazole 40 MG VIAL IVP SCH (09:52)
[2022-02-11] MEDS: Apixaban 5 MG TAB PO SCH (09:52)
[2022-02-11] MEDS: Senokot S 8.6-50 MG TAB PO SCH (09:55)
[2022-02-11 14:22] VITALS: BP 130/66; TEMP 97.5
== END 2022-02-11 13:40 | DRG 377 ==
LOC: CSHERS 01:03 → CSHIMCU 07:33 → CSHTELE 02-02 18:43 → CSHICU 02-03 12:22 → CSHTELE 02-05 13:20
PROVIDERS: ADMIT Family Medicine; ATTEND Internal Medicine
PROC: 30233N1 Transfusion of Nonautologous Red Blood Cells into Peripheral Vein, Percutaneous Approach (ICD-10-PCS; principal; 2022-01-28)
PROC: 5A12012 Performance of Cardiac Output, Single, Manual (ICD-10-PCS; 2022-01-28)
PROC: 03HY32Z Insertion of Monitoring Device into Upper Artery, Percutaneous Approach (ICD-10-PCS; 2022-01-28)
PROC: 4A133B1 Monitoring of Arterial Pressure, Peripheral, Percutaneous Approach (ICD-10-PCS; 2022-01-28)
PROC: 4A133J1 Monitoring of Arterial Pulse, Peripheral, Percutaneous Approach (ICD-10-PCS; 2022-01-28)
PROC: 30283B1 Transfusion of Nonautologous 4-Factor Prothrombin Complex Concentrate into Vein, Percutaneous Approach (ICD-10-PCS; 2022-01-28)
PROC: 0BH17EZ Insertion of Endotracheal Airway into Trachea, Via Natural or Artificial Opening (ICD-10-PCS; 2022-01-28)
PROC: 5A1945Z Respiratory Ventilation, 24-96 Consecutive Hours (ICD-10-PCS; 2022-01-28)
PROC: 5A09357 Assistance with Respiratory Ventilation, Less than 24 Consecutive Hours, Continuous Positive Airway Pressure (ICD-10-PCS; 2022-01-28)
PROC: 0DJ08ZZ Inspection of Upper Intestinal Tract, Via Natural or Artificial Opening Endoscopic (ICD-10-PCS; 2022-01-28)
PROC: 3E043XZ Introduction of Vasopressor into Central Vein, Percutaneous Approach (ICD-10-PCS; 2022-01-28)
PROC: 02H633Z Insertion of Infusion Device into Right Atrium, Percutaneous Approach (ICD-10-PCS; 2022-01-28)
PROC: 5A2204Z Restoration of Cardiac Rhythm, Single (ICD-10-PCS; 2022-01-29)
PROC: 5A09457 Assistance with Respiratory Ventilation, 24-96 Consecutive Hours, Continuous Positive Airway Pressure (ICD-10-PCS; 2022-02-01)
DX: K92.1 Melena (principal); J69.0 Pneumonitis due to inhalation of food and vomit; R57.8 Other shock; G93.41 Metabolic encephalopathy; R57.1 Hypovolemic shock; J96.01 Acute respiratory failure with hypoxia; I50.33 Acute on chronic diastolic (congestive) heart failure; I21.A1 Myocardial infarction type 2; I46.2 Cardiac arrest due to underlying cardiac condition; R57.0 Cardiogenic shock; I49.01 Ventricular fibrillation; E87.2 Acidosis; D62 Acute posthemorrhagic anemia; I47.2 Ventricular tachycardia; I42.8 Other cardiomyopathies; I48.21 Permanent atrial fibrillation; I44.2 Atrioventricular block, complete; J98.11 Atelectasis; E87.3 Alkalosis; Z51.5 Encounter for palliative care; I11.0 Hypertensive heart disease with heart failure; J44.9 Chronic obstructive pulmonary disease, unspecified; N40.0 Benign prostatic hyperplasia without lower urinary tract symptoms; E03.9 Hypothyroidism, unspecified; R41.0 Disorientation, unspecified; I95.9 Hypotension, unspecified; G51.0 Bell's palsy; E78.5 Hyperlipidemia, unspecified; K57.90 Diverticulosis of intestine, part unspecified, without perforation or abscess without bleeding; I25.10 Atherosclerotic heart disease of native coronary artery without angina pectoris; E87.6 Hypokalemia; D72.829 Elevated white blood cell count, unspecified; K44.9 Diaphragmatic hernia without obstruction or gangrene; I49.3 Ventricular premature depolarization; R45.1 Restlessness and agitation; T50.2X5A Adverse effect of carbonic-anhydrase inhibitors, benzothiadiazides and other diuretics, initial encounter; R07.89 Other chest pain; G47.33 Obstructive sleep apnea (adult) (pediatric); Z20.822 Contact with and (suspected) exposure to COVID-19; Z98.890 Other specified postprocedural states; Z79.01 Long term (current) use of anticoagulants; Z90.79 Acquired absence of other genital organ(s); Z90.89 Acquired absence of other organs; Z85.038 Personal history of other malignant neoplasm of large intestine; Z85.46 Personal history of malignant neoplasm of prostate; Z90.49 Acquired absence of other specified parts of digestive tract; Z79.02 Long term (current) use of antithrombotics/antiplatelets; Z79.899 Other long term (current) drug therapy; Z79.890 Hormone replacement therapy; Z95.0 Presence of cardiac pacemaker; Z87.891 Personal history of nicotine dependence; Z83.3 Family history of diabetes mellitus; Z82.49 Family history of ischemic heart disease and other diseases of the circulatory system; Z79.82 Long term (current) use of aspirin; Z78.1 Physical restraint status
CPT/HCPCS: 36415; 36416; 36430; 36600; 70450; 71045; 71250; 74018; 74177; 80048; 80053; 80202; 82553; 82805; 83605; 83690; 83735; 84145; 84443; 84484; 85025; 85610; 86850; 86900; 86901; 87040; 87081; 93005; 93010; 93306; 94002; 94003; 94640; 94660; 94760; 96374; 96375; 99292; C9113; J0171; J0282; J0692; J1120; J1630; J1650; J1940; J2060; J2405; J2543; J2704; J3010; J3370; J3475; J3480; J3490; J7050; J7070; J7168; J7620; P9016; Q9967; U0002; U0003; U0005